=== PATIENT | female | born 2000 | race African-American/Black ===

== ENCOUNTER 2024-08-02 12:33 | Emergency (ER) | payer BC, OTHER ==
[~2024-08-02] VITALS: Ht 160 cm; Wt 58.0 kg
[2024-08-02 12:46] VITALS: O2SAT 98
[2024-08-02 12:49] VITALS: O2SAT 98
[2024-08-02 14:00] VITALS: BP 123/68; PULSE 74; RESP 18; TEMP 97.9
[2024-08-02] MEDS: ACETAMINOPHEN 325MG TABLET PO ONE (14:00)
[2024-08-02] MEDS: ONDANSETRON 4MG ODT PO ONE (14:00)
[2024-08-02] MEDS: KETOROLAC 30MG/ML VIAL IM ONE (14:00)
[2024-08-02] MEDS ORDERED: ONDA-239 PO (15:02)
== END 2024-08-02 15:30 | disposition home or self-care (01) ==
LOC: ER 12:33
DX: B34.9 Viral infection, unspecified (principal); Z20.822 Contact with and (suspected) exposure to COVID-19
CPT/HCPCS: 99283; 87426; 81025; 87804 ×2; 96372; Q0162; J1885